=== PATIENT | female | born 1945 | race Caucasian/White ===

== ENCOUNTER 2021-01-05 20:12 | Emergency (ER) | payer OTHER, MEDICARE ==
[~2021-01-05] VITALS: Ht 165.1 cm; Wt 73.0 kg
[2021-01-05 23:10] VITALS: BP 144/80
--- NOTE | 2021-01-05 23:11 | PHYS DOC ---
General Adult EDM: Chief Complaint: WRIST PAIN HPI: HPI: Patient is a 75 year old female who present to ER for evaluation of left wrist injury. Patient says she slipped in the gym today, landed on left wrist area. Patient also says she hit her head but did not pass out. Patient is not on any blood thinner. Patient denies any headache, no neck pain at this time. Patient said it happened about 5 PM today. She denies any low back pain, denies any hip pain, denies any knee pain. Review of Systems: Review of Systems: Constitutional: Denies fever or chills. [] Eyes: Denies change in visual acuity. [] HENT: Denies nasal congestion or sore throat. [] Respiratory: Denies cough or shortness of breath. [] Cardiovascular: Denies chest pain or edema. [] GI: Denies abdominal pain, nausea, vomiting, bloody stools or diarrhea. [] : Denies dysuria. [] Musculoskeletal: Positive for left wrist pain and swelling Integument: Denies rash. [] Neurologic: Denies headache, focal weakness or sensory changes. [] Endocrine: Denies polyuria or polydipsia. [] Lymphatic: Denies swollen glands. [] Psychiatric: Denies depression or anxiety. [] Heart Score: C/O Chest Pain: N/A Risk Factors: Risk Factors: DM, Current or recent (<one month) smoker, HTN, HLP, family history of CAD, obesity. Risk Scores: Score 0 - 3: 2.5% MACE over next 6 weeks - Discharge Home Score 4 - 6: 20.3% MACE over next 6 weeks - Admit for Clinical Observation Score 7 - 10: 72.7% MACE over next 6 weeks - Early Invasive Strategies Physical Exam: PE: Constitutional: Well developed, well nourished, no acute distress, non-toxic appearance. [] HENT: Normocephalic, atraumatic, bilateral external ears normal, oropharynx moist, no oral exudates, nose normal. [] Eyes: PERRLA, EOMI, conjunctiva normal, no discharge. [] Neck: Normal range of motion, no tenderness, supple, no stridor. [] Cardiovascular:Heart rate regular rhythm, no murmur [] Lungs & Thorax: Bilateral breath sounds clear to auscultation [] Abdomen: Bowel sounds normal, soft, no tenderness, no masses, no pulsatile masses. [] Skin: Warm, dry, no erythema, no rash. [] Back: No tenderness, no CVA tenderness. [] Extremities: Left wrist is swollen and tender to palpation, no open wound. Neurologic: Alert and oriented X 3, normal motor function, normal sensory function, no focal deficits noted. [] Psychologic: Affect normal, judgement normal, mood normal. [] EKG: EKG: [] Radiology/Procedures: Radiology/Procedures: [][facility] [address] [place] [address] IMAGING REPORT Signed PATIENT: ANNE-MARIE CALDERON AACCOUNT: [id number] : 1945 LOCATION: ER AGE: 75 SEX: F EXAM STATUS: REG ER ORD. PHYSICIAN: TIMBO MOY DO REASON: LEFT WRIST INJURED , FELL AT 5 PM TODAY PROCEDURE: WRIST 3V LEFT EXAM: XR LT WRIST 3VIEWS 01/05/2021 11:10 PM CLINICAL INDICATION: Left wrist injury, fell at 5:00 PM COMPARISON: None TECHNIQUE: 3 views of the left wrist FINDINGS: There is a minimally displaced distal radial metaphyseal fracture and a nondisplaced tiny ulnar styloid process fracture. No other fracture or malalignment. Joint spaces are maintained. There is moderate soft tissue swelling. IMPRESSION: Minimally displaced distal radial fracture and tiny ulnar styloid process fracture. Electronically signed by: Lashell Oro MD (01/06/2021 12:16 AM) [id number] DICTATED and SIGNED BY: LASHELL ORO MD DATE: 01/06/21 [id number] 0 Splinting Procedure: Indication: LEFT DISTAL RADIUS AND ULNAR FRACTURE Splint was done by: THIS PHYSICIAN Method: DORSAL/VOLAR FLAP Material: ORTHOGLASS MATERIAL Post Splinting exam was done by this physician, capillary refill of the affected extremity was less than 2 seconds, no focal neurovascular deficit. No evidence of compartment syndrome. Complication : none, patient tolerated procedure well. Course & Med Decision Making: Course & Med Decision Making Pertinent Labs and Imaging studies reviewed. (See chart for details) [] Dragon Disclaimer: Dragon Disclaimer: This electronic medical record was generated, in whole or in part, using a voice recognition dictation system. Departure Departure Impression: Primary Impression: Closed fracture distal radius and ulna Disposition: HOME / SELF CARE / HOMELESS Condition: STABLE Referrals: FLAKITO PHAN MD (PCP) SHAKRIA WATERS MD Please follow up with this Orthopedic surgeon this week . Patient Instructions: Wrist Fracture Additional Instructions: Thank you for visiting our Emergency Department. We appreciate you trusting us with your care. If any additional problems come up don't hesitate to return to visit us. Please follow up with your primary care provider so they can plan additional care if needed and know about the problem that you had. If symptoms worsen come back to the Emergency Department. Any concerning symptoms that start such as chest pain, shortness of air, weakness or numbness on one side of the body, running high fevers or any other concerning symptoms return to the ER. Scripts Hydrocodone Bit/Acetaminophen (HYDROCODONE-APAP 5-325 ) 1 Tab Tablet 1 TAB PO PRN Q6HRS PRN for PAIN, #15 TAB 0 Refills Prov: TIMBO MOY DO 01/06/21 TIMBO MOY DO Jan 05, 2021 23:11
--- NOTE | 2021-01-06 00:18 | RAD ---
EXAM: XR LT WRIST 3VIEWS 01/05/2021 11:10 PM CLINICAL INDICATION: Left wrist injury, fell at 5:00 PM COMPARISON: None TECHNIQUE: 3 views of the left wrist FINDINGS: There is a minimally displaced distal radial metaphyseal fracture and a nondisplaced tiny ulnar styloid process fracture. No other fracture or malalignment. Joint spaces are maintained. There is moderate soft tissue swelling. IMPRESSION: Minimally displaced distal radial fracture and tiny ulnar styloid process fracture. Electronically signed by: Lashell Oro MD (01/06/2021 12:16 AM) [id number]
[2021-01-06] MEDS ORDERED: HYDROcodone/APAP 10/325 1 TAB TABLET PO ONE (00:30)
[2021-01-06] MEDS ORDERED: HYDR-2761 PO (00:51)
== END 2021-01-06 01:25 | disposition home or self-care (01) ==
LOC: ER 20:12
DX: S52.502A Unspecified fracture of the lower end of left radius, initial encounter for closed fracture (principal); S52.612A Displaced fracture of left ulna styloid process, initial encounter for closed fracture; W01.198A Fall on same level from slipping, tripping and stumbling with subsequent striking against other object, initial encounter; Y93.43 Activity, gymnastics; Y92.39 Other specified sports and athletic area as the place of occurrence of the external cause; Y99.8 Other external cause status
CPT/HCPCS: 29125; 73120; 99283